=== PATIENT | female | born 1980 | race Caucasian/White ===

== ENCOUNTER → 2021-07-30 09:16 | Outpatient (CLI) | payer OTHER, SELFPAY ==
--- NOTE | ~2021-07-30 | MMUS_ITS ---
EXAMINATION: MM diag meghan implant BI w sotero, US breast LT complete HISTORY: Palpable left breast abnormality TECHNIQUE: Additional 3-D tomosynthesis images of the breasts were performed and synthetic 2-D images were generated. CAD analysis was submitted and interpreted. High resolution complete left breast ult rasound was performed. COMPARISON: 02/24/2011 BREAST PARENCHYMAL COMPOSITION: There are bilateral subpectoral silicone implants. FINDINGS: MAMMOGRAPHIC FINDINGS: There are no suspicious masses, calcifications or architectural distortion in the left breast. There are capsular calcifications along the superior margin of the left breast implant. ULTRASOUND: Complete left breast ultrasound: At 1:00, 6 cm from the nipple in the area of palpable concern there is a oval mass causing mass effect on the adjacent breast implant. This mass measures 1.8 x 1.0 x 1.5 cm with heterogeneous internal echotexture and possible internal calcifications. There is internal v ascularity along the superficial margin. IMPRESSION: 1. Oval heterogeneous mass of the left breast at 1:00, 6 cm from the nipple in the area of palpable c oncern measuring 1.8 x 1.5 x 1 cm. 2. Ultrasound-guided left breast biopsy recommended. BI-RADS category 4, suspicious findings. Reviewed, dictated and finalized at location A. OLIDATION ACCOUNTANT IMPRESSION: 1. Oval heterogeneous mass of the left breast at 1:00, 6 cm from the nipple in the area of palpable concern measuring 1.8 x 1.5 x 1 cm. 2. Ultrasound-guided left breast biopsy recommended. BI-RADS category 4, suspicious findings.
== END ==
PROVIDERS: Visit Provider Obstetrics & Gynecology
DX: N63.20 Unspecified lump in the left breast, unspecified quadrant (principal); R92.8 Other abnormal and inconclusive findings on diagnostic imaging of breast
CPT/HCPCS: 76641; 77062; 77066; G0279

== ENCOUNTER → 2023-06-20 07:43 | Outpatient (CLI) | payer OTHER, SELFPAY ==
--- NOTE | ~2023-06-20 | US_ITS ---
US abdomen complete EXAMINATION: US Abdomen Complete INDICATION: Elevated enzymes PROCEDURE: Realtime High Resolution abdomen ultrasound. COMPARISON: No prior studies for comparison FINDINGS: Gallbladder within normal limits. No gallstones, pericholecystic fluid, gallbladder wall t hickening or biliary dilatation. Common bile duct measures 4 mm. Liver echotexture within normal limits without focal mass. Pancreas within normal limits. Pancreati c tail is obscured by bowel gas. Spleen is unremarkeable. Renal echotexture is within normal limits bilaterally without hydronephrosis, contour deforming mass or renal stone. Right kidney measures 11 c m. Left kidney measures 10.2 cm. Visualized aspects of the aorta and IVC are within normal limits. Portal vein is patent. No sonograph ic Pradhan's sign indicated by the technologist. IMPRESSION: 1: Normal abdominal ultrasound. Reviewed, dictated and finalized at location B. TRAFFICKER
== END ==
PROVIDERS: PCP Family Medicine; Visit Provider Family Medicine
DX: R74.8 Abnormal levels of other serum enzymes (principal); E78.2 Mixed hyperlipidemia
CPT/HCPCS: 76700